=== PATIENT | male | born 1945 | race Caucasian/White ===

== ENCOUNTER → 2017-07-06 | Outpatient (CLI) | payer OTHER, MEDICARE | LOC: BRMIMAGING 09:34 | PROVIDERS: ATTEND Nurse Practitioner | DX: Z13.820 Encounter for screening for osteoporosis (principal); E78.2 Mixed hyperlipidemia; E55.9 Vitamin D deficiency, unspecified; C61 Malignant neoplasm of prostate ==

== ENCOUNTER → 2017-08-04 | Outpatient (CLI) | payer OTHER, MEDICARE | LOC: CIMAGING 09:22 | DX: Z03.89 Encounter for observation for other suspected diseases and conditions ruled out (principal) | CPT/HCPCS: 71046-PO ==